=== PATIENT | female | born 1950 | race Caucasian/White ===

== ENCOUNTER → 2023-12-10 13:16 | Outpatient (REF) | payer OTHER, SELFPAY | LOC: MRI 3T 13:16 | PROVIDERS: ATTENDING PHYSICIAN Student in an Organized Health Care Education/Training Program; FAMILY PHYSICIAN Family Medicine | DX: G89.29 Other chronic pain (principal); M54.50 Low back pain, unspecified | CPT/HCPCS: 72148 ==

== ENCOUNTER → 2024-01-03 12:43 | Outpatient (REF) | payer OTHER, SELFPAY | LOC: HWRAD 12:43 | PROVIDERS: ATTENDING PHYSICIAN Student in an Organized Health Care Education/Training Program | DX: M54.42 Lumbago with sciatica, left side (principal) | CPT/HCPCS: 72220; 73502 ==